=== PATIENT | male | born 1995 | race Caucasian/White ===

== ENCOUNTER 2018-09-17 21:58 | Emergency (ER) | payer OTHER ==
[~2018-09-17] VITALS: Ht 177.8 cm; Wt 104.8 kg
[~2018-09-17 21:58] MED LIST: VENTOLIN HFA 1818 GM INH; ZPAK PO
[2018-09-17] MEDS ORDERED: KEFLEX500 M1 PO (22:39)
[2018-09-17] MEDS ORDERED: IBUPROFEN 600600 M1 PO (22:39)
[2018-09-17 22:58] VITALS: BP 122/66
== END 2018-09-17 23:00 | disposition home or self-care (01) ==
LOC: M.ERS 21:58
DX: S61.213A Laceration without foreign body of left middle finger without damage to nail, initial encounter (principal); W26.8XXA Contact with other sharp object(s), not elsewhere classified, initial encounter; Y93.89 Activity, other specified; Y92.89 Other specified places as the place of occurrence of the external cause; Y99.8 Other external cause status

== ENCOUNTER 2018-09-27 14:58 | Emergency (ER) | payer OTHER ==
[~2018-09-27] VITALS: Ht 177.8 cm; Wt 104.8 kg
[~2018-09-27 14:58] MED LIST changes: +IBUPROFEN 600600 M1 PO; +KEFLEX500 M1 PO
[2018-09-27 15:03] VITALS: BP 129/91
== END 2018-09-27 15:33 | disposition home or self-care (01) ==
LOC: M.ERS 14:58
DX: S61.213D Laceration without foreign body of left middle finger without damage to nail, subsequent encounter (principal); W25.XXXD Contact with sharp glass, subsequent encounter

== ENCOUNTER 2018-10-07 16:01 | Emergency (ER) | payer OTHER ==
[~2018-10-07] VITALS: Ht 177.8 cm; Wt 104.3 kg
[2018-10-07 16:08] VITALS: BP 175/113
[2018-10-07] MEDS ORDERED: KEFLEX500 M1 PO (16:41)
[2018-10-07] MEDS ORDERED: BACTRIM DS TAB1 EACH PO (16:41)
== END 2018-10-07 16:49 | disposition home or self-care (01) ==
LOC: M.ERS 16:01
DX: L03.116 Cellulitis of left lower limb (principal)